=== PATIENT | female | born 1930 ===

== ENCOUNTER 2021-01-28 11:36 | Outpatient (CLI) | payer MEDICARE, MEDICAID | END 2021-01-28 11:37 | disposition home or self-care (01) | LOC: CSHWCC 11:36 | PROVIDERS: ATTEND Nurse Practitioner Family | DX: I87.312 Chronic venous hypertension (idiopathic) with ulcer of left lower extremity (principal); L89.109 Pressure ulcer of unspecified part of back, unspecified stage; I87.2 Venous insufficiency (chronic) (peripheral); L97.222 Non-pressure chronic ulcer of left calf with fat layer exposed; L97.822 Non-pressure chronic ulcer of other part of left lower leg with fat layer exposed; L97.522 Non-pressure chronic ulcer of other part of left foot with fat layer exposed; R60.0 Localized edema; E78.2 Mixed hyperlipidemia; I50.9 Heart failure, unspecified; M06.9 Rheumatoid arthritis, unspecified; Z74.01 Bed confinement status | CPT/HCPCS: 99213; G0463 ==

== ENCOUNTER 2021-02-25 11:42 | Outpatient (CLI) | payer MEDICARE | END 2021-02-25 11:43 | disposition home or self-care (01) | LOC: CSHWCC 11:42 | PROVIDERS: ATTEND Nurse Practitioner Family | DX: I87.312 Chronic venous hypertension (idiopathic) with ulcer of left lower extremity (principal); L97.222 Non-pressure chronic ulcer of left calf with fat layer exposed; L97.822 Non-pressure chronic ulcer of other part of left lower leg with fat layer exposed; L89.890 Pressure ulcer of other site, unstageable; R60.0 Localized edema; E78.2 Mixed hyperlipidemia; I50.9 Heart failure, unspecified; I87.2 Venous insufficiency (chronic) (peripheral); L97.522 Non-pressure chronic ulcer of other part of left foot with fat layer exposed; L89.109 Pressure ulcer of unspecified part of back, unspecified stage; M06.9 Rheumatoid arthritis, unspecified; Z74.01 Bed confinement status | CPT/HCPCS: 97139; G0463; 99213 ==